=== PATIENT | female | born 1995 | race Caucasian/White ===

== ENCOUNTER 2017-05-27 19:21 | Emergency (ER) | payer OTHER ==
[~2017-05-27] VITALS: Ht 162.6 cm; Wt 88.5 kg
[2017-05-27 20:49] LABS: MEAN CORPUSCULAR HEMOGLOBIN 28.3 pg (27.0-33.0); MEAN CORPUSCULAR HGB CONC 33.2 g/dl (32.0-36.5); MEAN CORPUSCULAR VOLUME 85.3 fl (80.0-96.0); RED CELL DISTRIBUTION WIDTH 12.8 % (11.5-14.5); WHITE BLOOD COUNT 7.9 K/mm3 (4.0-10.0)
[2017-05-27 21:14] LABS: CONTROL LINE HCG INT CTR LINE PRESENT
[2017-05-27 21:25] LABS: ALBUMIN 3.6 GM/DL (3.2-5.2); ALBUMIN/GLOBULIN RATIO 0.88 (1.00-1.93); ALKALINE PHOSPHATASE 82 U/L (45-117); ALT/SGPT 25 U/L (12-78); ANION GAP 9 MEQ/L (8-16); AST/SGOT 17 U/L (15-37); BILIRUBIN,DIRECT < 0.1 MG/DL (0.0-0.2); BILIRUBIN,TOTAL 0.3 MG/DL (0.2-1.0); BLOOD UREA NITROGEN 11 MG/DL (7-18); CALCIUM LEVEL 9.2 MG/DL (8.5-10.1); CARBON DIOXIDE LEVEL 24 MEQ/L (21-32); CHLORIDE LEVEL 106 MEQ/L (98-107); CREATININE FOR GFR 0.73 MG/DL (0.55-1.02); GLUCOSE, FASTING 83 MG/DL (70-105); POTASSIUM SERUM 4.1 MEQ/L (3.5-5.1); SODIUM LEVEL 139 MEQ/L (136-145); TOTAL PROTEIN 7.7 GM/DL (6.4-8.2)
[2017-05-27 22:55] VITALS: BP 122/68
--- NOTE | 2017-05-28 07:22 | ECGEPIP ---
Stationary ECG Study [facility] - ED Test Date: 2017-05-27 Pat Name: PANCHO COLEMAN Department: Room: - Gender: F [employer] Supervisor: : 1995 Requested By: HAVEN Li Order Number: [id number] Reading MD: Dwayne Velazquez Measurements Intervals [place] Rate: 82 P: 41 CA: 124 QRS: 58 QRSD: 93 T: 45 QT: 394 QTc: 462 Interpretive Statements SINUS RHYTHM Electronically Signed On 05-28-2017 7:21:54 EDT by Dwayne Velazquez
--- NOTE | 2017-05-28 08:08 | REP ---
Chest x-ray: Two views. History: Shortness of breath . Comparison study: No comparison . Findings: The lungs are well inflated and free of infiltrate. The pleural angles are sharp. The heart size is normal. Pulmonary vasculature is not increased. No significant bony abnormality is seen. Impression: Negative chest x-ray. Signed by Andrew Salinas MD 05/28/2017 08:00 A
== END 2017-05-27 22:57 | disposition home or self-care (01) ==
LOC: M ED 19:21
DX: F41.1 Generalized anxiety disorder (principal); R56.9 Unspecified convulsions
CPT/HCPCS: 36415; 71020; 80048; 80076; 84443; 84703; 85027; 93005; 99284; G0480

== ENCOUNTER 2017-07-29 20:07 | Emergency (ER) | payer OTHER ==
[~2017-07-29] VITALS: Ht 162.6 cm; Wt 92.0 kg
[2017-07-29 20:07] VITALS: BP 139/88
[2017-07-29] MEDS ORDERED: MULTCAP11 PO (20:13)
[2017-07-29] MEDS ORDERED: bcp's PO (20:13)
== END 2017-07-29 21:05 | disposition left against medical advice (07) ==
LOC: M ED 20:07
DX: Z53.21 Procedure and treatment not carried out due to patient leaving prior to being seen by health care provider (principal)

== ENCOUNTER 2018-08-21 11:16 | Outpatient (CLI) | payer OTHER ==
[~2018-08-21] VITALS: Ht 162.6 cm; Wt 99.1 kg
[~2018-08-21 11:16] MED LIST: MULTCAP11 PO; bcp's PO
[2018-08-21 11:29] VITALS: BP 118/57
== END 2018-08-21 11:55 | disposition home or self-care (01) ==
LOC: M LDO 11:16
PROVIDERS: ATTEND Obstetrics & Gynecology
DX: O36.8130 Decreased fetal movements, third trimester, not applicable or unspecified (principal); Z3A.28 28 weeks gestation of pregnancy
CPT/HCPCS: 59025; G0378; G0463

== ENCOUNTER 2018-11-07 16:34 | Outpatient (CLI) | payer OTHER ==
[~2018-11-07] VITALS: Ht 162.6 cm; Wt 108.1 kg
--- NOTE | 2018-11-07 17:49 | NUR ---
[facility] L&D Outpatient Evaluation S: Maya is 23 y/o G1 presenting at 39+4 weeks via L/9 week US for possible ROM at 1141 this am. She also reports frequent abdominal tightening but denies pain. She denies VB or continual LOF and she endorses excellent FM. She reports one time "gush" of clear fluid while getting out of her shower. She denies any subsequent LOF or change in vaginal dc. Her was c/b obesity, excessive weight gain, elevated 1hr; nml 3hr gtt. GBS NEG. O: VSS/AF GEN: A&O x3; NAD ABD: NTTP; relaxed uterine resting tone in between ctx EXT: + 1 to BLE; neg clonus FHR: RNST; BL 135, moderate variability, + accelerations, no decelerations; ctx q 1.5-4; mild intensity via palpation; pt denies pain associated w/ ctx. SSE: NEG pooling on valsalva SCE: FT/long/soft/mid position MICRO: NEG nitrozine. NEG ferning. NEG clue cells. NEG trich. NEG fungal elements. TAUS: SIUP: + FM; + FCA rate 138. anterior placenta. MOHINDER: 11.87. Anatomy not assessed. A/P: This is a 23 y/o G1 at 39+4 via L/9 week US. RNST. Not in labor, IBOW via PE/micro/TAUS. Physiologic leukorrhea. Reviewed findings and discussed warning signs and return precautions. Reinforced importance of daily FMC's and instructed pt to keep CP appt on Nov. Reviewed comfort measures for latent phase labor and late gestation. Pt reports understanding and denies further questions/concerns.
== END 2018-11-07 17:51 | disposition home or self-care (01) ==
LOC: M LDO 16:34
PROVIDERS: ATTEND Obstetrics & Gynecology
DX: O26.893 Other specified pregnancy related conditions, third trimester (principal); R36.0 Urethral discharge without blood; N89.8 Other specified noninflammatory disorders of vagina; Z3A.39 39 weeks gestation of pregnancy
CPT/HCPCS: 59025; 76815; G0378; G0463

== ENCOUNTER 2018-11-17 15:20 | Outpatient (CLI) | payer OTHER ==
[~2018-11-17] VITALS: Ht 162.6 cm; Wt 111.0 kg
[2018-11-17 15:37] VITALS: BP 124/57
[2018-11-17 16:37] VITALS: BP 135/80
== END 2018-11-17 16:35 | disposition home or self-care (01) ==
LOC: M LDO 15:20
PROVIDERS: ATTEND Obstetrics & Gynecology
DX: O47.1 False labor at or after 37 completed weeks of gestation (principal); Z3A.41 41 weeks gestation of pregnancy
CPT/HCPCS: 59025; 76815; G0378; G0463

== ENCOUNTER 2018-11-19 01:58 | Inpatient (IN) | payer OTHER ==
[~2018-11-19] VITALS: Ht 160 cm; Wt 110.5 kg
[2018-11-19] VITALS (30 sets, daily range): BP systolic 82–124; BP diastolic 39–60
[2018-11-19] MEDS ORDERED: LACTATED RINGER'S 1000 ML IV STA (03:25)
--- NOTE | 2018-11-19 03:51 | HPEPDOC ---
Obstetrical History & Physical General Date of Admission History of Present Illness 23 yo at 41+2 weeks today by LMP of [id number] c/w 9+0 week US on [id number] presented to L&D with regular, painful contractions. She denies any vaginal bleeding or leakage of fluid. She endorses movement. complicated by obesity (BMI 43). Chief Complaint: Contractions, term Information Provided By: Patient Age: 23 : 1 Term: 0 Pre-term: 0 Abortions: 0 Livin Care Care: Good Care Dating Final EDC: Nov 10, 2018 Final EDC for Daily Update: Nov 10, 2018 Final EDC by: LMP LMP: February 03, 2018 Antepartum Course Diagnos(e)s Obesity --> BMI 43 Abnormal early 1hr --> 3hr normal, and repeat 1hr GTT normal Past Medical History Past Obstetrical History : Past Obstetrical History: [employer] History: No pertinent history Past Medical History Medical History Obesity Surgical History: Denies/None Family History Significant Family History: No pertinent family hx Family History Non contributory Social History Marital Status: Family situation: Spouse/partner home Psychosocial History: No pertinent psych hx * Smoker: non-smoker Alcohol: Denies Imunizations Tdap status: current Influenza Status: current Allergies Coded Allergies: [place] (Verified Allergy, Intermediate, RASH IN CONTACT AREA, 11/07/18) Nickel (Verified Allergy, Intermediate, RASH IN CONTACT AREA, 11/07/18) Medications Scheduled (Multi Complete) 1 Cap Cap, 1 CAP PO DAILY Physical Examination Physical Examination GENERAL: Alert and oriented times three. ABDOMEN: Gravid and non-tender to touch. FETUS: Is vertex (VTX) by sterile vaginal examination (SVE) EXTREMITIES: No edema. Laboratory Data Urine Culture: No Growth Pertinent Laboratoy Data Blood Type: A+ RBC Antibody Screen: Negative HIV: Negative Hepatitis B: Negative Hepatitis C: Unknown Rapid Plasma Reagin: Nonreactive Rubella: Immune Varicella: Nonreactive (Will need varicella ) Chlamydia/Gonorrhea: Negative Group B Streptococcus: Negative Quad Screen Test: Unknown Cystic Fibrosis: Negative Glucose Tolerance Test: 113 Anatomy Ultrasound Placenta Location: Anterior Normal Anatomy: Yes Placenta Previa: No Steroid Therapy Steroid Therapy: No Vaginal Examination Dilation: 3 cm Effacement: 80% Station: -3 Cervical Consistency: Soft Cervical Position: Middle Presentation: Cephalic presentation Position: Vertex (occiput) Assessment Heart Rate (FHR): 135 Variability: Moderate Accelerations: Positive Decelerations: None Tocometer Contractions: Yes Frequency: regular Duration: greater than 60 seconds Strength: palpated as moderate Assessment/Plan Assessment 23 yo at 41+2 weeks presented in early labor. Plan Admit to L&D for expectant of labor. Will augment as clinically indicated. Apply IV fluids. GBS negative. Clear liquid diet. Patient may have epidural as desired. Anticipate . Cheikh Morrell, DO Labor and Delivery Counseling /VAVD/FAVD counseling: Description: Deliver your baby through the vagina with possible assistance of forceps or vacuum device if needed for maternal or indications. Forceps and vacuum are devices that can assist with vaginal delivery when normal pushing efforts cannot achieve delivery on their own or when delivery is needed in an emergency for baby's well-being. Medications may be required to induce or augment (help) your labor in order to achieve a vaginal delivery. An episiotomy may be required to help your baby to delivery vaginally. You may also require repair of any lacerations or tears of your vagina or vulva that are caused by delivery. In some cases, emergencies can occur that require an emergency section delivery so quickly that there may not be enough time to stop and complete consent forms for section. Understand that if this occurs, your providers will discuss the need for a section with you before they proceed with surgery. section is the delivery of your baby through an incision in your abdomen. In some situations, section may be safer to mom and baby than continuing labor and is only performed when clinically indicated. Risks of vaginal delivery include but are not limited to: Bleeding, infection, injury to the vagina, pelvic structures, injury to baby, damage to the uterus, reactions to anesthesia, uterine rupture, risk of hysterectomy for life threatening bleeding, or . Medications used to induce or augment labor may increase your risk for infection, uterine tachysystole, uterine rupture, heart rate abnormalities, need for emergency delivery or possible hysterectomy, and hemorrhage. Additional risks for use of forceps and vacuum include: increased risk of perineal and vaginal lacerations, risk of urinary or bowel incontinence, increased risk of injury to baby with bruising, scratches, hematomas on the head, or intracranial bleeding. Ms. Shaffer verbalizes understanding of these risks and elects to proceed. She also consents to blood products for transfusion should they become necessary, All patient questions answered. DO JOANN Sousa CHRISTOPHER J. Nov 19, 2018 03:51
[2018-11-19 03:53] LABS: BASO % 0.3 % (0.0-1.0); EOS # 0.1 10^3/uL (0.0-0.50); EOS % 0.6 % (0.0-3.0); HEMATOCRIT 37.6 % (36.0-47.0); HEMOGLOBIN 12.5 g/dl (12.0-15.5); LYMPH # 1.9 10^3/uL (1.5-6.5); LYMPH % 18.6 % (24.0-44.0); MEAN CORPUSCULAR HGB CONC 33.2 g/dl (32.0-36.5); MEAN CORPUSCULAR VOLUME 84.1 fl (80.0-96.0); MONO # 0.9 10^3/uL (0.0-0.8); NEUTROPHILS # 7.1 10^3/uL (1.8-7.7); NEUTROPHILS % 70.7 % (36.0-66.0); PLATELET COUNT, AUTOMATED 261 10^3/uL (150-450); RED BLOOD COUNT 4.47 10^6/uL (4.00-5.40); WHITE BLOOD COUNT 10.1 10^3/uL (4.0-10.0)
[2018-11-19] MEDS ORDERED: FENTANYL 2MCG/ML ROPIVACAINE 0.2% IN 0.9% NACL 100ML IVBAG As Ordered ONE (04:05)
[2018-11-19] MEDS ORDERED: ERYTHROMYCIN OPHTH OINT As Ordered ONE (04:51)
[2018-11-19] MEDS ORDERED: EPIDURAL COMMENT XX SCH (05:00)
[2018-11-19] MEDS ORDERED: FENTANYL/ROPIVACAINE/NACL BAG 100 ML EPIDURAL SCH (05:00)
[2018-11-19] MEDS ORDERED: NALOXONE INJ 0.4 MG/1 ML VIAL (J2310) IV PRN ×3 (05:00→23:21)
[2018-11-19] MEDS ORDERED: ONDANSETRON 4MG/2ML VIAL (J2405) IV PRN ×2 (05:00→23:21)
[2018-11-19] MEDS ORDERED: REFRIGERATOR IV KEYS XX PRN (05:00)
[2018-11-19] MEDS ORDERED: diphenhydrAMINE INJ 50MG/ML VIAL (J1200) IV PRN ×2 (05:00→23:21)
[2018-11-19] MEDS ORDERED: EPIDURAL/PCA KEYS XX PRN (05:00)
[2018-11-19] MEDS ORDERED: ePHEDrine SULFATE 25 MG/5 ML(5MG/ML) SYRINGE IV PRN (05:00)
[2018-11-19] MEDS ORDERED: OXYTOCIN DRIP 30 UNITS in APPROPRIATE DILUENT 1 EA IV SCH (08:00)
--- NOTE | 2018-11-19 08:00 | NUR ---
[facility] L&D Progress: S: [place] of care from Narayan Morrell MD. Maya is a 23 yo at 41+2 weeks admitted in latent phase labor for augmentation d/t late-term. She reports good relief of labor pain since NIKKI placement but reports intermittent mild headache and is requesting Tylenol. O: VSS/AF GEN: A&Ox3 ABD: Sof, relaxed uterine resting tone FHR: CAT I TOCO: irregular u/a of mild intensity to palpation SCE: 4/80/-2 with clear amniotic fluid A/P: Maya is a 23 y/o G1 at 41+2. Latent phase labor. CAT I FHR. SROM clear fluid at 0345. Will augment labor with oxytoicn at this time and may have Tylenol as needed for h/a.
[2018-11-19] MEDS ORDERED: ACETAMINOPHEN 325 MG TAB PO ONE (08:15)
--- NOTE | 2018-11-19 10:37 | NUR ---
[facility] L&D Intrapartm Progress S: CNM to bs d/t repetitive late decelerations and increased FHR baseline to 160. She is laying on right side and denies pain/pressure w/ ctx. O: VSS/AF NAD ABD: Gravid, relaxed uterine resting tone FHR 160 mod variability, late decelerations TOCO: ctx q3min mild intensity via palp on oxytocin at 8mu/min SCE: 3-4/80/-2. small caput noted. A/P: G1 at 41+2. Latent phase labor. CAT II FHR. Stopped oxytocin at this time; repositioned to left lateral and adm 500 ml LR bolus. IUPC/FSE placed for closer FHR surveillance. Will proceed w/ caution. Discussed POC with patient; she reports understanding w/o questions/concerns.
--- NOTE | 2018-11-19 12:24 | NUR ---
[facility] L&D Intrapartm Progress S: CNM to bs d/t repetitive late decelerations. She is laying on left side and denies pain/pressure w/ ctx. O: VSS/AF NAD ABD: Gravid, relaxed uterine resting tone FHR via FSE: 150 mod variability, late decelerations + acceleration during scalp stimulation IUPC: ctx q3min, oxytocin dc'd. Relaxed uterne resting tone. MVU are inadequate. SCE: 3/80/-2. small caput noted. A/P: G1 at 41+2. Latent phase labor. Intermitent CAT II FHR for late decelerations. Oxytocin remained stopped at this time. Dr. Hernandez is aware of maternal/FHR assessment. Will proceed w/ caution and restart oxytocin with resumption of CAT I FHR tracing.
[2018-11-19] MEDS: LR 1,000 ML IV SCH ×2 (13:00→20:30)
--- NOTE | 2018-11-19 18:13 | NUR ---
[facility] L&D Intrapartm Progress S: CNM called to bs as patient reports significant increase in vaginal/rectal pressure. O: VSS/AF NAD ABD: Gravid, relaxed uterine resting tone FHR via FSE: 135 mod variability, + accelerations, variable decel during SCE; no other decels present IUPC: ctx q2-2.5min, with oxytocin at 8mu/min; MVU's 180-200 SCE: 5/80/-2. Significantly increased lip of cervix on right side A/P: G1 at 41+2. Latent phase labor but cervical change since previous examination. CAT I FHR Oxytocin titration to ensure MVU's are at least 180mvu/10min. Maternal repositioning to right semi--prone position. Safe to proceed.
[2018-11-19] MEDS ORDERED: BICITRA 30ML SOLN UDC PO ONE (22:12)
[2018-11-19] MEDS ORDERED: ceFAZolin 2 GM/D5W 50 ML IV BAG (J0690 PER 500MG) As Ordered ONE (22:13)
[2018-11-19] MEDS ORDERED: AZITHROMYCIN INJ 500 MG, VIAL MATE ADAPTER 1 EACH in D5W 250 ML IV ONE (22:15)
[2018-11-19] MEDS ORDERED: ACETAMINOPHEN 650 MG SUPP PR ONE (22:45)
[2018-11-19] MEDS ORDERED: BUPIVACAINE HCL 0.25% 10 ML VIAL SC ONE (22:45)
[2018-11-19] MEDS ORDERED: LIDOCAINE 2% W/EPIN INJ 20ML **PRES FREE As Ordered ONE (23:01)
[2018-11-19] MEDS ORDERED: SODIUM BICARBONATE 8.4% INJ 50MEQ 50 ML VIAL As Ordered ONE (23:01)
[2018-11-19] MEDS ORDERED: OXYTOCIN INJ 10 UNITS/ML VIAL (J2590) As Ordered ONE ×2 (23:01→23:15)
[2018-11-19] MEDS ORDERED: PHENYLephrine HCL 500 MCG/5 ML (100MCG/ML) SYRINGE (J2370) As Ordered ONE (23:02)
[2018-11-19] MEDS ORDERED: MORPHINE PRES-FREE INJ 10 MG/10 ML VIAL (J2274) As Ordered ONE (23:19)
[2018-11-19] MEDS ORDERED: NALBUPHINE HCL 10 MG/ML AMP (J2300) IV PRN (23:21)
[2018-11-19] MEDS ORDERED: METOCLOPRAMIDE INJ 10MG/2ML VIAL (J2765) IV PRN (23:21)
[2018-11-19 23:35] LABS: CORD GAS ABE A -4.6; CORD GAS ABE V -2.9; CORD GAS HCO3 A 24.8 MEQ/L; CORD GAS HCO3 V 22.8 MEQ/L; CORD GAS O2 SAT A 16.5 %; CORD GAS O2 SAT V 55.4 %; CORD GAS PCO2 A 63.4 mmHg; CORD GAS PCO2 V 43.2 mmHg; CORD GAS PH A 7.21 UNITS; CORD GAS PH V 7.341 UNITS; CORD GAS PO2 A 14.6 mmHg; CORD GAS PO2 V 25.6 mmHg; CORD GAS SBC A 18.7 MEQ/L; CORD GAS SBC V 20.9 MEQ/L; CORD GAS TCO2 A 26.7 MEQ/L; CORD GAS TCO2 V 24.2 MEQ/L
[2018-11-20] VITALS (11 sets, daily range): BP systolic 116–138; BP diastolic 59–79
[2018-11-20] MEDS ORDERED: MEASLES,MUMPS,RUBELLA VACCINE INJ (MMR-II) (90707) SC SCH
[2018-11-20] MEDS ORDERED: ANUSOL HC CREAM 30GM TOP PRN
[2018-11-20] MEDS ORDERED: MOM 30ML SUSPENSION UDC PO PRN
[2018-11-20] MEDS ORDERED: DOCUSATE SODIUM 100 MG CAP PO PRN
[2018-11-20] MEDS ORDERED: RHOGAM 300 MCG (1500 IU) INJ (J2790) IM SCH
[2018-11-20] MEDS ORDERED: KETOROLAC 30 MG/ML VIAL (J1885) As Ordered ONE (00:13)
[2018-11-20] MEDS ORDERED: fentaNYL 100 MCG/2 ML INJECTION (J3010) As Ordered ONE (00:13)
[2018-11-20] MEDS ORDERED: MEPERIDINE INJ 25 MG/ML VIAL (J2175) IV PRN (00:30)
[2018-11-20] MEDS ORDERED: KETOROLAC 30 MG/ML VIAL (J1885) IV PRN (00:30)
[2018-11-20] MEDS ORDERED: LR 1,000 ML IV SCH (00:30)
[2018-11-20] MEDS ORDERED: fentaNYL 100 MCG/2 ML INJECTION (J3010) IV PRN (00:30)
[2018-11-20] MEDS ORDERED: ONDANSETRON 4MG/2ML VIAL (J2405) IV PRN (00:30)
[2018-11-20] MEDS ORDERED: METOCLOPRAMIDE INJ 10MG/2ML VIAL (J2765) IV PRN (00:30)
[2018-11-20] MEDS ORDERED: PERCOCET 5MG/325MG TAB PO PRN ×3 (00:30)
[2018-11-20] MEDS: PRENATAL VITAMINS CHEWABLE TABLET PO SCH (07:38)
[2018-11-20] MEDS: KETOROLAC 30 MG/ML VIAL (J1885) IV SCH ×3 (07:39→18:53)
[2018-11-20 08:00] LABS: HEMATOCRIT 31.1 % (36.0-47.0); MEAN CORPUSCULAR HEMOGLOBIN 27.5 pg (27.0-33.0); MEAN CORPUSCULAR HGB CONC 32.8 g/dl (32.0-36.5); MEAN CORPUSCULAR VOLUME 83.8 fl (80.0-96.0); PLATELET COUNT, AUTOMATED 228 10^3/uL (150-450); RED BLOOD COUNT 3.71 10^6/uL (4.00-5.40); WHITE BLOOD COUNT 13.8 10^3/uL (4.0-10.0)
[2018-11-20 08:03] LABS: HEMOGLOBIN 10.2 g/dl (12.0-15.5)
[2018-11-21 02:00] VITALS: BP 126/78
[2018-11-21] MEDS: IBUPROFEN 800 MG TAB PO SCH ×2 (02:41→10:51)
[2018-11-21 06:00] VITALS: BP 128/73
--- NOTE | 2018-11-21 09:17 | IPNPDOC ---
Text Note Date of Service The patient was seen on 11/21/18. NOTE POD2 PCD by REYMUNDO Pop at ~2300 on 15FEB States feeling well, pain controlled with prescribed meds. Baby bonding and feeding well. No heavy VB. Lochia slowing. Ambulatory. Tolerating PO without issues. Voiding spont many times since churchill out. VSSAF NAD A&O RRR CTAB LE no C/C/E Ut at 2, [employer] C/D/I a/p: Doing well. Cont routine postop care. D/C tomorrow likely. Sessions VSJavad, I+O VSJavad I+O Vital Signs Date Time Temp Pulse Resp B/P (MAP) Pulse Ox O2 Delivery O2 Flow Rate FiO2 11/21/18 06:00 96.8 92 18 128/73 (91) 99 I&O- Last 24 Hours up to 6 AM 11/21/18 05:59 Intake Total 960 ml Output Total 1150 ml Balance -190 ml SESSIONS,VIRGINIA Busch MD Nov 21, 2018 09:17
[2018-11-21] MEDS: PRENATAL VITAMINS CHEWABLE TABLET PO SCH (09:25)
--- NOTE | 2018-11-21 09:34 | DS.PDOC ---
Discharge Summary General Date of Admission Nov 19, 2018 at 03:53 Date of Discharge [id number] Discharge Summary ADMITTING DIAGNOSES: labor/SROM DISCHARGE DIAGNOSES: Primary delivery HOSPITAL COURSE: Admitted and delivery recommended and done by Dr Hernandez for failure to dilate/descend. Had an uncomplicated low-transverse . course uncomplicated. DISCHARGE MEDICATIONS: Motrin, Lanolin, Colace, Percocet DISCHARGE INSTRUCTIONS: Nothing in the vagina for 6 weeks. No driving for 2 weeks. No immersion of incision in dirty water for 4 weeks. F/U in OBGYN clinic 1-[address] Hernandez and in 6-8 weeks. Sessions Vital Signs/I&Os Vital Signs Date Time Temp Pulse Resp B/P (MAP) Pulse Ox O2 Delivery O2 Flow Rate FiO2 11/21/18 06:00 96.8 92 18 128/73 (91) 99 I&O- Last 24 Hours up to 6 AM 11/21/18 06:00 Intake Total 960 ml Output Total 1150 ml Balance -190 ml Discharge Medications Scheduled (Multi Complete) 1 Cap Cap, 1 CAP PO DAILY, (Reported) Allergies Coded Allergies: [place] (Verified Allergy, Intermediate, RASH IN CONTACT AREA, 11/07/18) Nickel (Verified Allergy, Intermediate, RASH IN CONTACT AREA, 11/07/18) SESSIONS,VIRGINIA Busch MD Nov 21, 2018 09:34
[2018-11-21] MEDS ORDERED: OXYC1TAB23 PO (10:22)
[2018-11-21] MEDS ORDERED: COLA100C5 PO (10:22)
[2018-11-21] MEDS ORDERED: PRENTAB9 PO (10:22)
[2018-11-21] MEDS ORDERED: MOTR200T44 PO (10:22)
--- NOTE | 2018-11-22 16:19 | DSES ---
DATE OF ADMISSION: 11/19/2018 DATE OF DISCHARGE: 11/21/2018 This lady is a 3 now para 1 admitted in active labor, delivered by primary section live male infant weighing 9 pounds 8 ounces, 43 00 grams, score of 8 and 9 at 1 and 5 minutes respectively. Failure to ascend, failure to dilate, macrosomia. Post dates and the body mass index (BMI) over 35. On her first day, we discussed phlebitis, cystitis, mastitis, metritis, cellulitis, diet, exercise, pain management, perineal breast and wound care. Admitting hemoglobin was 12.5, hematocrit 37.6 and platelets 261. Vital signs: Today blood pressure 116/79, respirations 18, pulse 112 and temperature 98.2. Abdomen: Soft, uterus two below. Lochia is moderate, four quadrant bowel sounds. Incision is clean and dry. No evidence of chest pain, shortness of breath or dyspnea on exertion. No deep vein thrombosis (DVT), pulmonary emboli (PE) or superficial phlebitis. The patient is planned on discharge for tomorrow. Breast-feeding is going well. Requesting oral contraceptive method of contraception which will be discussed at the 6-week checkup. Summary: We have a term gestation delivered by primary section for macrosomia, a live male .
--- NOTE | 2018-11-22 17:40 | RO ---
DATE OF PROCEDURE: 11/19/2018 PREOPERATIVE DIAGNOSIS: Failure to dilate, failure to descend, macrosomia, asynclitic head. POSTOPERATIVE DIAGNOSIS: Failure to dilate, failure to descend, macrosomia, asynclitic head. OPERATION PROPOSED: Primary section. OPERATION PERFORMED: Primary section. SURGEON: Dr. Ramon Hernandez TECHNOLOGY SALES REPRESENTATIVE: Dr. Lionel Ulrich for extraction, retraction, and visualization. ANESTHESIA: Spinal plus local anesthetic for intraperitoneal procedures. ESTIMATED BLOOD LOSS: 350 mL This lady was admitted with contractions at 41 and 3 weeks of gestation. She was 5-6 cm with a thick anterior lip for 6 hours, failed to descend, failed to dilate, category one strip, primary section was indicated. After retopping the epidural, patient in the supine position, Larson catheter in the bladder draining clear urine, acetaminophen suppository 1300 mg per rectum, sequentials on board. Appropriate antibiotics given, time-out was performed. A Pfannenstiel incision was made two fingerbreadths above the symphysis pubis, passing through abdominal layers securing hemostasis. Opening peritoneal cavity, bladder reflected well anteriorly, low transverse incision into the uterus. No fluid was noted. We delivered a live male 9 pounds 8 ounces, 4300 grams, scores of 8 and 9 at one and five minutes respectfully. Arterial pH 7.21, base excess -4.6, venous pH 7.34, base excess -2.9. We attempted to shoehorn this baby out with one blade of the forcep but because so asynclitic, we required to use the vacuum to allow it to come through the incisional site. The placenta was manually removed, three-vessel cord, membranes and tissues intact. The uterus contracted well down on Pitocin. The uterine cavity was swept out. No evidence of membranes or tissue. The lower segment was oversewn in two layers with the second layer being imbricated, reperitonealization was performed. With instrument and pad counts, both ovaries and tubes appeared to be normal, the abdomen was closed - running stitch for the peritoneum, same for the fascia, we irrigated the fat area, subcu stitches and Dexon to the skin, Marcaine 0.25% 10 mL, spray and Telfa were applied, and the patient was sent to recovery in good condition.
--- NOTE | 2018-11-23 17:27 | IPN ---
DATE: 11/19/2018 This patient requested circumcision of her male . After discussing risks and benefits of circumcision, the medical nonmedical indications, penile block, and aftercare, expressed understanding of penile block, aftercare, and bleeding, signed the consent. A 20-minute discussion. All questions were answered. We await clearance by the tool coordinator.
== END 2018-11-21 13:35 | disposition home or self-care (01) | DRG 773 ==
LOC: M LDO 01:58 → M LDI 03:53 → M OBS 11-20 01:14
PROVIDERS: ADMIT Obstetrics & Gynecology; ATTEND Obstetrics & Gynecology
PROC: 10D00Z1 Extraction of Products of Conception, Low, Open Approach (ICD-10-PCS; principal; 2018-11-19 22:47)
DX: O48.0 Post-term pregnancy (principal); Z3A.41 41 weeks gestation of pregnancy; O99.214 Obesity complicating childbirth; E66.9 Obesity, unspecified; Z68.35 Body mass index [BMI] 35.0-35.9, adult; O62.0 Primary inadequate contractions; O36.63X0 Maternal care for excessive fetal growth, third trimester, not applicable or unspecified; O32.4XX0 Maternal care for high head at term, not applicable or unspecified; Z37.0 Single live birth